=== PATIENT | female | born 1970 | race Caucasian/White ===

== ENCOUNTER 2022-04-17 22:44 | Emergency (ER) | payer BC, OTHER ==
[2022-04-17 22:56] VITALS: BP 124/58; PULSE 94; RESP 18; TEMP 98.3; BMI 62.4
== END 2022-04-17 23:20 | disposition home or self-care (01) ==
LOC: FER 22:44
DX: K62.89 Other specified diseases of anus and rectum (principal)
CPT/HCPCS: 99281-25